=== PATIENT | male | born 1960 | race Caucasian/White ===

== ENCOUNTER → 2016-09-28 | Outpatient (CLI) | payer OTHER ==
[2015-06-14 08:35] VITALS: BP 130/77
[~2016-09-28] MED LIST: DHA PO; FLUOXETINE HCL20 MG PO; MULTIVITAMIN1 SGL PO
== END ==
LOC: LAB 09:34
DX: E78.2 Mixed hyperlipidemia (principal); Z00.00 Encounter for general adult medical examination without abnormal findings; Z13.1 Encounter for screening for diabetes mellitus; Z12.5 Encounter for screening for malignant neoplasm of prostate; Z83.3 Family history of diabetes mellitus

== ENCOUNTER → 2017-01-18 | Outpatient (CLI) | payer OTHER ==
[2015-06-14 08:35] VITALS: BP 130/77
== END ==
LOC: LAB 06:52
DX: E78.00 Pure hypercholesterolemia, unspecified (principal)

== ENCOUNTER 2018-04-06 17:22 | Emergency (ER) | payer OTHER ==
[~2018-04-06] VITALS: Ht 182.9 cm; Wt 90.9 kg
[2018-04-06] MEDS ORDERED: ATORVASTATIN CA10 MG PO (18:07)
[2018-04-06 18:33] LABS: HEMATOCRIT 42.9 % (42.0-52.0); HEMOGLOBIN 14.5 g/dL (13.5-18.0); MEAN CELL VOLUME 92 fl (78-100); MEAN CORPUSCULAR HEMOGLOBIN 31 pg (27-31); MEAN CORPUSCULAR HGB CONC 34 g/dL (33-37); MEAN PLATELET VOLUME 9.8 fl (7.4-10.4); PLATELET COUNT 270 K/mm3 (130-400); RED BLOOD COUNT 4.66 M/mm3 (4.20-5.60); RED CELL DISTRIBUTION WIDTH 13.1 % (11.5-14.5); WHITE BLOOD COUNT 18.8 K/mm3 (4.8-10.8)
[2018-04-06 18:54] LABS: LYMPHOCYTE 3 % (20-51); MONOCYTE 10 % (3-10); NEUTROPHILS 86 % (42-75)
[2018-04-06 19:04] LABS: URINE APPEARANCE CLEAR; URINE COLOR YELLOW
[2018-04-06 19:05] LABS: URINE BILIRUBIN NEGATIVE (NEGATIVE); URINE BLOOD TRACE (NEGATIVE); URINE GLUCOSE NEGATIVE (NEGATIVE); URINE KETONE 1+ (NEGATIVE); URINE LEUKOCYTE ESTERASE NEGATIVE (NEGATIVE); URINE NITRATE NEGATIVE (NEGATIVE); URINE PROTEIN(semi-quant) TRACE mg/dL (NEGATIVE); URINE UROBILINOGEN NORMAL (NORMAL); URINE WBC 0-1 /hpf (0-3)
[2018-04-06 19:17] LABS: ALBUMIN 4.3 g/dL (3.5-5.0); CALCIUM 9.8 mg/dL (8.4-10.2); POTASSIUM 3.8 mmol/L (3.6-5.0); TOTAL BILIRUBIN 0.7 mg/dL (0.2-1.3); TOTAL PROTEIN 7.4 g/dL (6.3-8.2)
[2018-04-06 20:33] VITALS: BP 118/63
== END 2018-04-06 20:48 | disposition short-term general hospital (02) ==
LOC: ED 17:22
PROVIDERS: Physician Assistant
DX: K35.80 Unspecified acute appendicitis (principal); F41.9 Anxiety disorder, unspecified; Z79.899 Other long term (current) drug therapy

== ENCOUNTER 2018-04-11 03:51 | Observation (INO) | payer OTHER ==
[~2018-04-11] VITALS: Ht 182.9 cm; Wt 91.8 kg
[~2018-04-11 03:51] MED LIST changes: +ATORVASTATIN CA10 MG PO
[2018-04-11 05:00] LABS: HEMATOCRIT 44.8 % (42.0-52.0); HEMOGLOBIN 15.4 g/dL (13.5-18.0); MEAN CELL VOLUME 91 fl (78-100); MEAN CORPUSCULAR HEMOGLOBIN 31 pg (27-31); MEAN CORPUSCULAR HGB CONC 34 g/dL (33-37); MEAN PLATELET VOLUME 9.3 fl (7.4-10.4); PLATELET COUNT 299 K/mm3 (130-400); RED BLOOD COUNT 4.95 M/mm3 (4.20-5.60); RED CELL DISTRIBUTION WIDTH 13.8 % (11.5-14.5); WHITE BLOOD COUNT 8.2 K/mm3 (4.8-10.8)
[2018-04-11 05:12] LABS: ALBUMIN 3.4 g/dL (3.5-5.0); TOTAL BILIRUBIN 0.5 mg/dL (0.2-1.3); TOTAL PROTEIN 6.4 g/dL (6.3-8.2)
[2018-04-11 05:20] LABS: BAND 22 % (0-10); LYMPHOCYTE 14 % (20-51); METAMYELOCYTE 4 % (0-0); MONOCYTE 15 % (3-10); MYELOCYTE 3 % (0-0); NEUTROPHILS 40 % (42-75); POTASSIUM 3.6 mmol/L (3.6-5.0)
[2018-04-11 07:57] LABS: URINE APPEARANCE CLEAR; URINE COLOR YELLOW; URINE GLUCOSE NEGATIVE (NEGATIVE); URINE KETONE 2+ (NEGATIVE); URINE PROTEIN(semi-quant) TRACE mg/dL (NEGATIVE)
[2018-04-11 07:58] LABS: URINE BILIRUBIN NEGATIVE (NEGATIVE); URINE BLOOD 50 ery/uL (NEGATIVE); URINE LEUKOCYTE ESTERASE NEGATIVE (NEGATIVE); URINE MUCUS PRESENT (NOT PRESENT); URINE NITRATE NEGATIVE (NEGATIVE); URINE UROBILINOGEN NORMAL (NORMAL)
[2018-04-11 10:02] VITALS: BP 141/76
[2018-04-11 10:04] VITALS: BP 141/76
[2018-04-11 11:13] VITALS: BP 136/79
[2018-04-11 14:32] VITALS: BP 147/85
[2018-04-11 18:03] VITALS: BP 130/79
[2018-04-11 23:57] VITALS: BP 135/76
[2018-04-12 03:00] VITALS: BP 129/74
[2018-04-12 05:51] LABS: HEMATOCRIT 40.9 % (42.0-52.0); HEMOGLOBIN 13.5 g/dL (13.5-18.0); MEAN CELL VOLUME 93 fl (78-100); MEAN CORPUSCULAR HEMOGLOBIN 31 pg (27-31); MEAN CORPUSCULAR HGB CONC 33 g/dL (33-37); MEAN PLATELET VOLUME 8.7 fl (7.4-10.4); PLATELET COUNT 270 K/mm3 (130-400); RED BLOOD COUNT 4.39 M/mm3 (4.20-5.60); RED CELL DISTRIBUTION WIDTH 14.1 % (11.5-14.5); WHITE BLOOD COUNT 7.5 K/mm3 (4.8-10.8)
[2018-04-12 06:00] LABS: POTASSIUM 3.6 mmol/L (3.6-5.0); TOTAL BILIRUBIN 0.5 mg/dL (0.2-1.3); TOTAL PROTEIN 5.8 g/dL (6.3-8.2)
[2018-04-12 06:21] VITALS: BP 146/79
[2018-04-12 06:53] LABS: BAND 26 % (0-10); LYMPHOCYTE 16 % (20-51); MONOCYTE 20 % (3-10); MYELOCYTE 2 % (0-0)
[2018-04-12 06:54] LABS: URINE APPEARANCE CLEAR; URINE BILIRUBIN NEGATIVE (NEGATIVE); URINE BLOOD TRACE (NEGATIVE); URINE COLOR YELLOW; URINE GLUCOSE NEGATIVE (NEGATIVE); URINE KETONE NEGATIVE (NEGATIVE); URINE LEUKOCYTE ESTERASE NEGATIVE (NEGATIVE); URINE NITRATE NEGATIVE (NEGATIVE); URINE PROTEIN(semi-quant) NEGATIVE (NEGATIVE); URINE UROBILINOGEN NORMAL (NORMAL)
[2018-04-12 06:54] LABS: NEUTROPHILS 29 % (42-75)
[2018-04-12 06:55] LABS: URINE MUCUS PRESENT (NOT PRESENT); URINE WBC 0-1 /hpf (0-3)
[2018-04-12] MEDS ORDERED: FIRVANQ25 MG/1 ML PO (09:03)
[2018-04-12] MEDS ORDERED: ACETAMINOPHEN-H1 TA2 PO (09:03)
[2018-04-12] MEDS ORDERED: ZOFRAN4 M2 PO (09:04)
[2018-04-12 10:56] VITALS: BP 141/75
== END 2018-04-12 10:35 | disposition home or self-care (01) ==
LOC: ED 03:51 → MED/SURG 09:47
PROVIDERS: Family Medicine; ADMIT Nurse Practitioner Primary Care
DX: K51.00 Ulcerative (chronic) pancolitis without complications (principal); E78.5 Hyperlipidemia, unspecified; F41.9 Anxiety disorder, unspecified; Z90.49 Acquired absence of other specified parts of digestive tract; Z79.899 Other long term (current) drug therapy
CPT/HCPCS: G0378; J1885; J2270; J7030; Q9967

== ENCOUNTER → 2018-04-13 | Outpatient (CLI) | payer OTHER ==
[2018-04-12 10:56] VITALS: BP 141/75
[~2018-04-13] MED LIST changes: +ACETAMINOPHEN-H1 TA2 PO; +FIRVANQ25 MG/1 ML PO; +ZOFRAN4 M2 PO
[2018-04-13 09:12] LABS: HEMATOCRIT 41.5 % (42.0-52.0); HEMOGLOBIN 13.9 g/dL (13.5-18.0); MEAN CELL VOLUME 92 fl (78-100); MEAN CORPUSCULAR HEMOGLOBIN 31 pg (27-31); MEAN CORPUSCULAR HGB CONC 34 g/dL (33-37); MEAN PLATELET VOLUME 8.7 fl (7.4-10.4); PLATELET COUNT 289 K/mm3 (130-400); RED BLOOD COUNT 4.52 M/mm3 (4.20-5.60); RED CELL DISTRIBUTION WIDTH 13.7 % (11.5-14.5); WHITE BLOOD COUNT 12.4 K/mm3 (4.8-10.8)
[2018-04-13 09:23] LABS: ALBUMIN 3.4 g/dL (3.5-5.0); CALCIUM 8.8 mg/dL (8.4-10.2); POTASSIUM 3.3 mmol/L (3.6-5.0); TOTAL BILIRUBIN 0.5 mg/dL (0.2-1.3); TOTAL PROTEIN 6.5 g/dL (6.3-8.2)
[2018-04-13 09:40] LABS: BAND 18 % (0-10); LYMPHOCYTE 11 % (20-51); MONOCYTE 7 % (3-10); NEUTROPHILS 55 % (42-75)
== END ==
LOC: LAB 08:56
PROVIDERS: Nurse Practitioner Primary Care
DX: K51.00 Ulcerative (chronic) pancolitis without complications (principal)

== ENCOUNTER → 2018-04-15 | Outpatient (CLI) | payer OTHER ==
[2018-04-12 10:56] VITALS: BP 141/75
[2018-04-15 07:54] LABS: ALBUMIN 3.5 g/dL (3.5-5.0); CALCIUM 8.9 mg/dL (8.4-10.2); POTASSIUM 3.3 mmol/L (3.6-5.0); TOTAL BILIRUBIN 0.6 mg/dL (0.2-1.3); TOTAL PROTEIN 6.8 g/dL (6.3-8.2)
== END ==
LOC: LAB 07:13
PROVIDERS: Nurse Practitioner
DX: R22.40 Localized swelling, mass and lump, unspecified lower limb (principal); L53.9 Erythematous condition, unspecified

== ENCOUNTER → 2018-04-18 | Outpatient (CLI) | payer OTHER ==
[2018-04-12 10:56] VITALS: BP 141/75
[2018-04-18 16:26] LABS: HEMATOCRIT 39.4 % (42.0-52.0); HEMOGLOBIN 12.9 g/dL (13.5-18.0); MEAN CELL VOLUME 93 fl (78-100); MEAN CORPUSCULAR HEMOGLOBIN 30 pg (27-31); MEAN CORPUSCULAR HGB CONC 33 g/dL (33-37); MEAN PLATELET VOLUME 8.3 fl (7.4-10.4); PLATELET COUNT 391 K/mm3 (130-400); RED BLOOD COUNT 4.26 M/mm3 (4.20-5.60); RED CELL DISTRIBUTION WIDTH 14.1 % (11.5-14.5); WHITE BLOOD COUNT 7.5 K/mm3 (4.8-10.8)
[2018-04-18 16:44] LABS: CALCIUM 9.1 mg/dL (8.4-10.2); POTASSIUM 3.9 mmol/L (3.6-5.0)
[2018-04-18 17:13] LABS: LYMPHOCYTE 23 % (20-51); MONOCYTE 7 % (3-10); NEUTROPHILS 68 % (42-75)
== END ==
LOC: LAB 15:51
PROVIDERS: Family Medicine
DX: A04.72 Enterocolitis due to Clostridium difficile, not specified as recurrent (principal); M02.369 Reiter's disease, unspecified knee

== ENCOUNTER → 2019-07-20 | Outpatient (CLI) | payer OTHER ==
[2019-07-20 08:39] LABS: POTASSIUM 4.2 mmol/L (3.5-5.1)
[2019-07-20 08:40] LABS: ALBUMIN 4.5 g/dL (3.5-5.0)
[2019-07-20 08:41] LABS: CALCIUM 9.8 mg/dL (8.3-10.5)
[2019-07-20 08:44] LABS: TOTAL BILIRUBIN 0.6 mg/dL (0.2-1.2)
[2019-07-20 09:02] LABS: URINE APPEARANCE CLEAR; URINE BILIRUBIN NEGATIVE (NEGATIVE); URINE BLOOD 50 ery/uL (NEGATIVE); URINE COLOR YELLOW; URINE GLUCOSE NEGATIVE (NEGATIVE); URINE KETONE NEGATIVE (NEGATIVE); URINE LEUKOCYTE ESTERASE NEGATIVE (NEGATIVE); URINE NITRATE NEGATIVE (NEGATIVE); URINE PROTEIN(semi-quant) TRACE mg/dL (NEGATIVE); URINE UROBILINOGEN NORMAL (NORMAL); URINE WBC 0-1 /hpf (0-3)
== END ==
LOC: LAB 08:15
PROVIDERS: Family Medicine
DX: F41.1 Generalized anxiety disorder (principal); R35.1 Nocturia

== ENCOUNTER → 2019-10-27 | Outpatient (CLI) | payer OTHER | LOC: RAD 12:08 | DX: M25.532 Pain in left wrist (principal) ==

== ENCOUNTER 2020-06-30 11:59 | Emergency (ER) | payer OTHER ==
[2020-06-30 12:46] LABS: EOS # 0.2 (0.04-0.40); EOS % 3.3 % (0.0-4.0); HEMATOCRIT 44.1 % (42.0-52.0); HEMOGLOBIN 14.7 g/dL (13.5-18.0); LYMPH# 1.2 (1.50-4.00); MEAN CELL VOLUME 93 fl (78-100); MEAN CORPUSCULAR HEMOGLOBIN 31 pg (27-31); MEAN CORPUSCULAR HGB CONC 33 g/dL (33-37); MONO # 0.5 (0.20-0.80); NEU # 4.7 (1.40-6.50); PLATELET COUNT 234 K/mm3 (130-400); RED BLOOD COUNT 4.77 M/mm3 (4.20-5.60); RED CELL DISTRIBUTION WIDTH 13.9 % (11.5-14.5); WHITE BLOOD COUNT 6.6 K/mm3 (4.8-10.8)
[2020-06-30 12:56] LABS: ALBUMIN 4.3 g/dL (3.5-5.0); POTASSIUM 4.3 mmol/L (3.5-5.1)
[2020-06-30 12:57] LABS: CALCIUM 9.1 mg/dL (8.3-10.5)
[2020-06-30 12:58] LABS: TOTAL PROTEIN 6.8 g/dL (6.4-8.3)
[2020-06-30 14:43] VITALS: BP 126/72
== END 2020-06-30 14:43 | disposition home or self-care (01) ==
LOC: ED 11:59
PROVIDERS: Family Medicine
DX: R00.2 Palpitations (principal); R07.89 Other chest pain; E78.5 Hyperlipidemia, unspecified

== ENCOUNTER → 2020-08-20 | Outpatient (CLI) | payer OTHER | LOC: LAB 09:50 | DX: Z20.822 Contact with and (suspected) exposure to COVID-19 (principal) ==